=== PATIENT | male | born 1945 | race Caucasian/White ===

== ENCOUNTER 2018-01-10 07:20 | Day surgery (SDC) | payer OTHER ==
[~2018-01-10] VITALS: Ht 172.7 cm; Wt 78.4 kg
[~2018-01-10 07:20] MED LIST: BETA15OI19 TP; RAMI10CA23 PO; SIMV5TAB6 PO; SODIUM CHLORIDE 0.9% 1000ML 1,000 ML IV ONE
[2018-01-10 08:34] VITALS: BP 147/73
[2018-01-10] MEDS ORDERED: PROPOFOL 10 MG/ML 20ML VIAL IV ONE (10:27)
[2018-01-10 10:53] VITALS: BP 82/47
== END 2018-01-10 11:37 | disposition home or self-care (01) ==
LOC: DAH 07:20
PROVIDERS: ATTEND Internal Medicine Gastroenterology
DX: Z09 Encounter for follow-up examination after completed treatment for conditions other than malignant neoplasm (principal); D12.3 Benign neoplasm of transverse colon; D12.0 Benign neoplasm of cecum; K21.9 Gastro-esophageal reflux disease without esophagitis; I10 Essential (primary) hypertension; E78.4 Other hyperlipidemia; Z79.899 Other long term (current) drug therapy; Z86.010 Personal history of colon polyps; Z98.890 Other specified postprocedural states
CPT/HCPCS: 45380; 88305; 93005; A4606; J2704; J7030